=== PATIENT | male | born 1945 | race Caucasian/White ===

== ENCOUNTER 2017-03-08 23:44 | Emergency (ER) | payer OTHER ==
--- NOTE | 2017-03-08 23:54 | Emergency Department Record ---
History of Present Illness - General Chief complaint: Lower Extremity Pain Stated complaint: BLOODCLOT Time Seen by Provider: 03/08/17 23:48 Source: Patient Mode of Arrival: Wheelchair Limitations: No limitations - History of Present Illness Initial comments: 71 yo male presents to ED for evaluation of worsening pain and swelling to the LLE for the past 3-4 days. Patient reports that his knee "gave out" 3-4 days ago resulting pain behind the knee, believes he may have injured a tendon in the knee joint however is concerned about possible blood clot. Patient denies fevers, chills, or recent illness. Patient denies h/o DVT or recent immobilization. MD Complaint: Extremity swelling Onset/Timin -: Days(s) Location: Left, Lower Leg History of Same: No -: Yes Myalgia Radiation: Distal Quality: Aching Consistency: Constant Improves with: Nothing Worsens with: Walking Associated Symptoms: Denies other symptoms - Related Data Home Medications Medication Instructions Recorded Confirmed Last Taken Albuterol Sulfate [Proair 90 mcg IH QID PRN 03/08/17 03/08/17 Unknown Respiclick] Aspirin 81 mg PO DAILY 03/08/17 03/08/17 Unknown Clobetasol Propionate/Emoll 15 gm TP DAILY 03/08/17 03/08/17 Unknown [Clobetasol Emollient 0.05% Crm] Diltiazem HCl [Diltiazem ER] 360 mg PO DAILY 03/08/17 03/08/17 Unknown Ergocalciferol (Vitamin D2) 50,000 unit PO ASDIR 03/08/17 03/08/17 Unknown [Vitamin D2] Hydrochlorothiazide 25 mg PO DAILY 03/08/17 03/08/17 Unknown Losartan Potassium [Cozaar] 100 mg PO DAILY 03/08/17 03/08/17 Unknown Metformin HCl [Fortamet] 1,000 mg PO DAILY 03/08/17 03/08/17 Unknown Rosuvastatin Calcium [Crestor] 20 mg PO DAILY 03/08/17 03/08/17 Unknown Saxagliptin HCl [Onglyza] 5 mg PO DAILY 03/08/17 03/08/17 Unknown Sodium Fluoride [Prevident] 100 ml DT BID 03/08/17 03/08/17 Unknown Tiotropium [place] [Spiriva] 1 cap IH DAILY 03/08/17 03/08/17 Unknown Previous Rx's Medication Instructions Recorded Hydrocodone/Acetaminophen [[place] 1 each PO Q6H PRN #15 tablet 03/09/17 7.5-325 Tablet] Ibuprofen [Motrin] 800 mg PO Q6H #30 tab 03/09/17 Allergies Allergy/AdvReac Type Severity Reaction Status Date / Time acetaminophen [From NyQuil] Allergy RASH Verified 03/08/17 23:48 coal tar Allergy RASH Verified 03/08/17 23:48 dextromethorphan Allergy RASH Verified 03/08/17 23:48 [From NyQuil] doxylamine [From NyQuil] Allergy RASH Verified 03/08/17 23:48 lisinopril Allergy CONGESTION Verified 03/08/17 23:48 pseudoephedrine [From NyQuil] Allergy RASH Verified 03/08/17 23:48 metformin AdvReac ABDOMINAL Verified 03/09/17 00:11 PAIN Review of Systems Constitutional: Denies: Chills, Fever, Malaise, Night sweats Eyes: Denies: Eye discharge, Eye pain ENT: Denies: Congestion, Ear pain, Epistaxis Respiratory: Denies: Cough, Dyspnea Cardiovascular: Reports: Edema. Denies: Chest pain, Dyspnea on exertion Endocrine: Denies: Fatigue, Heat or cold intolerance Gastrointestinal: Denies: Abdominal pain, Nausea, Vomiting Genitourinary: Denies: Incontinence, Retention Musculoskeletal: Reports: Arthralgia, Myalgia. Denies: Back pain, Gout, Joint swelling Skin: Denies: Bruising, Change in color Neurological: Denies: Abnormal gait, Confusion, Headache, Seizure Psychiatric: Denies: Anxiety Hematological/Lymphatic: Denies: Anemia, Blood Clots Physical Exam - General General Appearance: Alert, Oriented x3, Cooperative, Moderate distress Limitations: No limitations - Head Head exam: Atraumatic, Normocephalic, Normal inspection Head exam detail: negative: Abrasion, Contusion, Stroud's sign, General tenderness, Hematoma, Laceration - Eye Eye exam: Normal appearance. negative: Conjunctival injection, Periorbital swelling, Periorbital tenderness, Scleral icterus - ENT Ear exam: negative: Auricular hematoma, Auricular trauma Nasal Exam: negative: Active bleeding, Discharge, Dried blood, Foreign body Mouth exam: negative: Drooling, Laceration, Muffled voice, Tongue elevation - Neck Neck exam: Normal inspection. negative: Meningismus - Respiratory Respiratory exam: Normal lung sounds bilaterally. negative: Rales, Respiratory distress, Rhonchi, Stridor - Cardiovascular Cardiovascular Exam: Regular rate, Normal rhythm, Normal heart sounds - GI/Abdominal GI/Abdominal exam: Soft. negative: Rebound, Rigid, Tenderness - Rectal Rectal exam: Deferred - exam: Deferred - Extremities Extremities exam: Calf tenderness, Pedal edema, Tenderness, Other (TTP to the left popliteal region and left proximal calf region, strong DPP, 3+ edema is present left) - Back Back exam: Denies: CVA tenderness (R), CVA tenderness (L) - Neurological Neurological exam: Alert, Oriented X3 - Psychiatric Psychiatric exam: Normal affect, Normal mood - Skin Skin exam: Normal color. negative: Abrasion Type of lesion: negative: abrasion Course - Reevaluation(s) Reevaluation #1: 03/09/17 01:23 D-Dimer 0.33. Patient was updated on D-Dimer result, excludes DVT as a source of the patient' s symptoms. On further examination, patient's ligaments are stable on examination, there is no warmth to palpation on examination, and no erythema to suggest a septic joint. Patient has no pain with palpation of the knee itself, pain is isolated to the popliteal region and is mild currently, patient is able to stand without difficulty. As a result, fracture is not suspected and x-rays unlikely to be of benefit. Patient reports that his pain symptoms are greatly improved following Aleve that he took at home, and he is able to ambulate and bear weight easily. Patient declined knee immobilizer or crutches. Patient appears stable for discharge with restricted activity on the LLE and follow-up with his PCP in 5-7 days for re-evaluation and likely MRI of knee as an outpatient. Will d/c home with [place] for analgesia as well. Disposition Disposition: Discharge Clinical Impression: Strain of knee and leg, left Qualifiers: Encounter type: initial encounter Qualified Code(s): S86.912A - Strain of unspecified muscle(s) and tendon(s) at lower leg level, left leg, initial encounter Disposition: Home, Self-Care Condition: (2) Stable Instructions: Knee Pain (ED) Additional Instructions: Return to ED if your symptoms worsen or if you have any concerns. Follow-up with you family doctor in 5-7 days for further evaluation of your knee pain symptoms. Caro as directed. Prescriptions: Hydrocodone/Acetaminophen [[place] 7.5-325 Tablet] 1 each PO Q6H PRN #15 tablet PRN Reason: Pain - Moderate (5-7) Ibuprofen [Motrin] 800 mg PO Q6H #30 tab Forms: Patient Portal Access Time of Disposition: :29 Quality - Quality Measures Quality Measures: N/A - Blood Pressure Screening Blood Pressure Classification: Pre-Hypertensive BP Reading Systolic Measurement: 148 Diastolic Measurement: 82 Screening for High Blood Pressure: < Pre-Hypertensive BP, F/U Documented > [ G8950] Pre-Hypertensive Follow-up Interventions: Referral to alternative/primary care provider.
[2017-03-09] MEDS ORDERED: HYDROCODONE/APAP 7.5/325MG TABLET PO ONE (01:33)
== END 2017-03-09 01:42 | disposition home or self-care (01) ==
LOC: ER 23:44
DX: S86.912A Strain of unspecified muscle(s) and tendon(s) at lower leg level, left leg, initial encounter (principal); X50.0XXA Overexertion from strenuous movement or load, initial encounter
CPT/HCPCS: 85379; 99283

== ENCOUNTER 2018-05-05 12:40 | Emergency (ER) | payer OTHER ==
[2018-05-05] MEDS ORDERED: HYDROCODONE/APAP 10/325 TABLET PO ONE (13:10)
--- NOTE | 2018-05-05 13:10 | Emergency Department Record ---
History of Present Illness - General Chief complaint: Lower Extremity Pain Stated complaint: LT HIP/GROIN PAIN Time Seen by Provider: 05/05/18 13:00 Source: Patient Mode of Arrival: Ambulatory Limitations: No limitations - History of Present Illness Initial comments: 72 yo male presents with left hip pain for about 10 days. The pain started after playing 18 holes of gold then chipping in the yard. The pain has been fairly constant. It hurts to move in certain directions and walking. At times the pain has caused him to stumble. He landed on his left knee a few days around. No swelling. No weakness. No numbness. No history of left hip surgery. No fevers, chills or new medical issues. MD Complaint: Extremity pain, Joint pain Onset/Timin -: Days(s) Location: Left History of Same: No -: Yes Arthralgia, Yes Myalgia Radiation: Proximal, Distal Severity scale (1-10): 9 Quality: Aching Consistency: Constant Improves with: Immobilization Worsens with: Walking, Weight bearing Associated Symptoms: Denies other symptoms - Related Data Home Medications Medication Instructions Recorded Confirmed Last Taken Glipizide 10 mg PO BID 05/05/18 05/05/18 Unknown Previous Rx's Medication Instructions Recorded Hydrocodone/Acetaminophen [[place] 1 each PO Q6H PRN #15 tablet 03/09/17 7.5-325 Tablet] Ibuprofen [Motrin] 800 mg PO Q6H #30 tab 03/09/17 Hydrocodone/APAP 7.5/325Mg [[place] 1 each PO Q6H #12 tab 05/05/18 7.5MG/325Mg] Allergies Allergy/AdvReac Type Severity Reaction Status Date / Time coal tar Allergy RASH Verified 05/05/18 13:06 dextromethorphan Allergy RASH Verified 05/05/18 13:06 [From NyQuil] doxylamine [From NyQuil] Allergy RASH Verified 05/05/18 13:06 lisinopril Allergy CONGESTION Verified 05/05/18 13:06 pseudoephedrine [From NyQuil] Allergy RASH Verified 05/05/18 13:06 metformin AdvReac ABDOMINAL Verified 05/05/18 13:06 PAIN Travel Screening - Travel/Exposure Within Last 30 Days Have you traveled within the last 30 days?: No Review of Systems Constitutional: Denies: Chills, Fever, Malaise ENT: Denies: Congestion, Throat pain Respiratory: Denies: Cough Cardiovascular: Denies: Chest pain, Syncope Endocrine: Denies: Fatigue Gastrointestinal: Denies: Abdominal pain, Diarrhea, Nausea, Vomiting Genitourinary: Denies: Dysuria, Frequency, Hematuria Musculoskeletal: Reports: As per HPI, Arthralgia, Myalgia Skin: Denies: Bruising, Change in color, Rash Neurological: Denies: Abnormal gait, Headache, Numbness, Tingling, Tremors, Weakness Psychiatric: Denies: Anxiety Hematological/Lymphatic: Denies: Blood Clots, Easy bleeding, Easy bruising, Swollen glands Past Medical History - SOCIAL HISTORY Smoking Status: Current every day smoker Drug Use: None - RESPIRATORY Hx COPD: Yes Comment:: emphysema - CARDIOVASCULAR Hx Hypertension: Yes Comment:: high cholesterol - NEURO Hx Neuro Disorders: No - GI Hx GI Disorders: No - Hx Genitourinary Disorders: No - ENDOCRINE Hx Endocrine Disorders: Yes Hx Diabetes: Yes (non insulin) - MUSCULOSKELETAL Hx Musculoskeletal Disorders: No - PSYCH Hx Psych Problems: Yes Comment:: PTSD - HEMATOLOGY/ONCOLOGY Hx Hematology/Oncology Disorders: No Hx Cancer: Yes (skin) Physical Exam - General General Appearance: Alert, Oriented x3, Cooperative, No acute distress Limitations: No limitations - Head Head exam: Atraumatic, Normal inspection - Eye Eye exam: Normal appearance - ENT ENT exam: Normal exam Ear exam: Normal external inspection Nasal Exam: Normal inspection Mouth exam: Normal external inspection - Neck Neck exam: Normal inspection - Respiratory Respiratory exam: Normal lung sounds bilaterally. negative: Respiratory distress - Cardiovascular Cardiovascular Exam: Regular rate, Normal rhythm, Normal heart sounds Peripheral Pulses: 2+: Dorsalis Pedis (L) - GI/Abdominal GI/Abdominal exam: Soft. negative: Guarding, Hernia, Rebound, Tenderness - Rectal Rectal exam: Deferred - exam: Deferred - Extremities Extremities exam: Normal inspection, Normal capillary refill, Tenderness. negative: Calf tenderness, Full ROM, Joint swelling, Pedal edema Image of Full Body: 1 - tender with deep palpation, no hernia or mass, pain with internal and external rotation 2 - tender, normal inspection - Back Back exam: Denies: CVA tenderness (R), CVA tenderness (L) - Neurological Neurological exam: Alert, Normal gait, Oriented X3. negative: Motor sensory deficit - Psychiatric Psychiatric exam: Normal affect, Normal mood - Skin Skin exam: Dry, Intact, Normal color, Warm Course - Reevaluation(s) Reevaluation #1: XR reviewed Hip OA noted. No fracture Knee with tri-compartment changes of degeneration 05/05/18 14:13 Disposition Disposition: Discharge Clinical Impression: Hip pain, Knee pain, acute Disposition: Home, Self-Care Condition: (1) Good Instructions: Osteoarthritis (ED) Additional Instructions: Rest avoid over use, prolonged standing, or lifting You have been referred to orthopedics and the family medicine clinic Prescriptions: Hydrocodone/APAP 7.5/325Mg [[place] 7.5MG/325Mg] 1 each PO Q6H #12 tab Referrals: DHARMESH ESQUEDA [MEDICAL DOCTOR] - DENILSON MITCHELL [DOCTOR OF OSTEOPATH] - Forms: Patient Portal Access Time of Disposition: 14:15 Quality - Quality Measures Quality Measures: N/A - Blood Pressure Screening Does Patient Have Any of the Following: Active Dx of HTN Blood Pressure Classification: Pre-Hypertensive BP Reading Systolic Measurement: 139 Diastolic Measurement: 79 Screening for High Blood Pressure: Patient Exclusion, Hx of HTN [G9744]
== END 2018-05-05 14:45 | disposition home or self-care (01) ==
LOC: ER 12:40
DX: G89.11 Acute pain due to trauma (principal); M25.552 Pain in left hip; M25.562 Pain in left knee; J44.9 Chronic obstructive pulmonary disease, unspecified; I10 Essential (primary) hypertension; E11.9 Type 2 diabetes mellitus without complications; F17.210 Nicotine dependence, cigarettes, uncomplicated
CPT/HCPCS: 99283 ×2; 73564; 73502; J3490

== ENCOUNTER 2018-05-09 11:15 | Emergency (ER) | payer OTHER ==
[2018-05-09] MEDS ORDERED: HYDROMORPHONE HCL 2 MG/ML VIAL IM ONE (11:41)
[2018-05-09] MEDS ORDERED: KETOROLAC 30 MG/ML VIAL IM ONE (11:41)
[2018-05-09] MEDS ORDERED: ONDANSETRON 4 MG ODT TABLET SL ONE (11:43)
--- NOTE | 2018-05-09 14:18 | Emergency Department Record ---
History of Present Illness - General Chief complaint: Pain Stated complaint: R HIP PAIN Time Seen by Provider: 05/09/18 11:25 Source: Patient Mode of Arrival: Ambulatory Limitations: No limitations - History of Present Illness Initial comments: pt has been having pain in his left hip area were neg except djd. he denies numness or bladder and bowel problems for 2 weeks which is gradually getting worse. now the pain is radiating down his l leg and his leg keeps going out on him. he has had a few falls fron his leg going out. he was seen in ed and referred to dr palomares. his hip and knee xrays Complaint: Joint pain, Other (back/buttock pain) Onset/Timin -: Week(s) Location: Left History of Same: Yes Severity scale (1-10): 10 Quality: Sharp Consistency: Constant Improves with: Immobilization Worsens with: Walking Associated Symptoms: Denies other symptoms - Related Data Previous Rx's Medication Instructions Recorded Ibuprofen [Motrin] 800 mg PO Q6H #30 tab 03/09/17 Hydrocodone/APAP 7.5/325Mg [[place] 1 each PO Q6H #12 tab 05/05/18 7.5MG/325Mg] Hydrocodone/Acetaminophen [[place] 1 each PO Q6HR #12 tablet 05/09/18 7.5-325 Tablet] Allergies Allergy/AdvReac Type Severity Reaction Status Date / Time coal tar Allergy RASH Verified 05/05/18 13:06 dextromethorphan Allergy RASH Verified 05/05/18 13:06 [From NyQuil] doxylamine [From NyQuil] Allergy RASH Verified 05/05/18 13:06 lisinopril Allergy CONGESTION Verified 05/05/18 13:06 pseudoephedrine [From NyQuil] Allergy RASH Verified 05/05/18 13:06 metformin AdvReac ABDOMINAL Verified 05/05/18 13:06 PAIN Travel Screening - Travel/Exposure Within Last 30 Days Have you traveled within the last 30 days?: No Review of Systems Reviewed: No additional complaints except as noted below Constitutional: Reports: As per HPI. Denies: Chills, Fever, Malaise, Night sweats, Weakness, Weight change Eyes: Reports: As per HPI. Denies: Eye discharge, Eye pain, Photophobia, Vision change ENT: Reports: As per HPI. Denies: Congestion, Dental pain, Ear pain, Epistaxis , Hearing loss, Throat pain Respiratory: Reports: As per HPI. Denies: Cough, Dyspnea, Hemoptysis, Stridor, Wheezes Cardiovascular: Reports: As per HPI. Denies: Arrhythmia, Chest pain, Dyspnea on exertion, Edema, Murmurs, Orthopnea, Palpitations, Paroxysmal nocturnal dyspnea, Rheumatic Fever, Syncope Endocrine: Reports: As per HPI. Denies: Fatigue, Heat or cold intolerance, Polydipsia, Polyuria Gastrointestinal: Reports: As per HPI. Denies: Abdominal pain, Constipation, Diarrhea, Hematemesis, Hematochezia, Melena, Nausea, Vomiting Genitourinary: Reports: As per HPI. Denies: Dysuria, Frequency, Hematuria, Incontinence, Retention, Testicular pain, Testicular mass, Urgency Musculoskeletal: Reports: As per HPI. Denies: Arthralgia, Back pain, Gout, Joint swelling, Myalgia, Neck pain Skin: Reports: As per HPI. Denies: Bruising, Change in color, Change in hair/ nails, Lesions, Pruritus, Rash Neurological: Reports: As per HPI. Denies: Abnormal gait, Confusion, Headache, Numbness, Paresthesias, Seizure, Tingling, Tremors, Vertigo, Weakness Psychiatric: Reports: As per HPI. Denies: Anxiety, Auditory hallucinations, Depression, Homicidal thoughts, Suicidal thoughts, Visual hallucinations Hematological/Lymphatic: Reports: As per HPI. Denies: Anemia, Blood Clots, Easy bleeding, Easy bruising, Swollen glands Past Medical History - SOCIAL HISTORY Smoking Status: Current every day smoker - RESPIRATORY Hx Respiratory Disorders: Yes Hx COPD: Yes Comment:: emphysema - CARDIOVASCULAR Hx Cardio Disorders: Yes Hx Hypertension: Yes Comment:: high cholesterol - NEURO Hx Neuro Disorders: No - GI Hx GI Disorders: No - Hx Genitourinary Disorders: No - ENDOCRINE Hx Endocrine Disorders: Yes Hx Diabetes: Yes (non insulin) - MUSCULOSKELETAL Hx Musculoskeletal Disorders: No - PSYCH Hx Psych Problems: Yes Comment:: PTSD - HEMATOLOGY/ONCOLOGY Hx Hematology/Oncology Disorders: No Hx Cancer: Yes (skin) Family Medical History Any Significant Family History?: No Physical Exam - General General Appearance: Alert, Oriented x3, Cooperative, Mild distress - Head Head exam: Normal inspection - Eye Eye exam: Normal appearance, PERRL, EOMI Pupils: Normal accommodation - ENT ENT exam: Normal exam, Mucous membranes moist, Normal external ear exam, Normal orophraynx Ear exam: Normal external inspection. negative: External canal tenderness Nasal Exam: Normal inspection. negative: Discharge, Sinus tenderness Mouth exam: Normal external inspection, Tongue normal Teeth exam: Normal inspection. negative: Dental caries Throat exam: Normal inspection. negative: Tonsillar erythema, Tonsillar exudate - Neck Neck exam: Normal inspection, Full ROM. negative: Tenderness - Respiratory Respiratory exam: Normal lung sounds bilaterally. negative: Respiratory distress - Cardiovascular Cardiovascular Exam: Regular rate, Normal rhythm, Normal heart sounds - GI/Abdominal GI/Abdominal exam: Soft, Normal bowel sounds. negative: Tenderness - Rectal Rectal exam: Deferred - exam: Deferred - Extremities Extremities exam: Normal inspection, Full ROM, Normal capillary refill. negative: Tenderness - Back Back exam: Reports: Full ROM, Muscle spasm, Tenderness, Vertebral tenderness. Denies: Rash noted - Neurological Neurological exam: Alert, CN II-XII intact, Normal gait, Oriented X3 - Psychiatric Psychiatric exam: Normal affect, Normal mood - Skin Skin exam: Dry, Intact, Normal color, Warm Course Vital Signs 05/09/18 05/09/18 05/09/18 11:19 11:31 13:24 Temperature 98.2 F 98.6 F Pulse Rate 78 Pulse Rate [ 77 Pulse Ox Probe] Respiratory 22 17 Rate Blood Pressure 150/86 Blood Pressure 127/73 [Left] Pulse Ox 91 L 91 L Disposition Disposition: Discharge Clinical Impression: Lumbar radiculopathy, acute Spinal stenosis Qualifiers: Spinal region: lumbosacral Qualified Code(s): M48.07 - Spinal stenosis, lumbosacral region Disposition: Home, Self-Care Condition: (1) Good Instructions: Lumbar Radiculopathy (ED) Additional Instructions: follow up with back doctor and family doctor. ice and moist heat. return sooner if worse Prescriptions: Hydrocodone/Acetaminophen [[place] 7.5-325 Tablet] 1 each PO Q6HR #12 tablet Referrals: WILLIAM COPE [DOCTOR OF OSTEOPATH] - Quality - Quality Measures Quality Measures: N/A - Blood Pressure Screening Does Patient Have Any of the Following: No Blood Pressure Classification: Pre-Hypertensive BP Reading Systolic Measurement: 150 Diastolic Measurement: 86 Screening for High Blood Pressure: < Pre-Hypertensive BP, F/U Documented > [ G8950] Pre-Hypertensive Follow-up Interventions: Follow-up with rescreen every year.
--- NOTE | 2018-05-11 14:29 | CT SCAN REPORT ---
EXAM: CT SCAN OF THE LUMBAR SPINE WITHOUT CONTRAST HISTORY: PAIN RADIATING TO THE LEFT GROIN AND INTO THE LEFT THIGH. TECHNIQUE: Standard CT imaging of the lumbar spine was performed in the axial plane without contrast. Additional coronal and sagittal reformatted images were also performed. Comparison: None. FINDINGS: There are five lumbar vertebral segments. End plate degenerative changes and facet arthropathy are present throughout. The vertebral body heights are maintained. There is no spondylolysis, spondylolisthesis, or acute compression fracture. There is a 3.8 x 2.7 cm cyst within the upper pole of the right kidney. Scattered diverticula are present within the sigmoid colon. There is no evidence for acute diverticulitis. The remaining visualized paraspinal soft tissues are normal. At the T12-L1 level: Unremarkable. At the L1-L2 level: Unremarkable. At the L2-L3 level: There is diffuse disk bulging with associated posterior spurring. Moderate bilateral facet arthropathy is also present. These findings combined result in moderate central canal stenosis with the AP dimension of the thecal sac measuring 7 mm. There is moderate bilateral neural foraminal narrowing with no visible nerve root impingement. At the L3-L4 level: There is diffuse disk bulging with associated posterior spurring. Severe bilateral facet arthropathy is present with thickening of the ligamentum flavum. These findings result in severe central canal stenosis with the AP dimension of the thecal sac measuring 5 mm. There is severe left neural foraminal narrowing with possible impingement on the exiting L3 nerve root. There is moderate right neural foraminal narrowing with no visible nerve root impingement. At the L4-L5 level: There is mild diffuse disk bulging. A superimposed small central disk protrusion is present. There is moderate to severe bilateral neural foraminal narrowing with thickening of the ligamentum flavum. This results in moderate central canal stenosis with the AP dimension of the thecal sac measuring 7 mm. There is moderate bilateral neural foraminal narrowing with no visible impingement on the exiting L4 nerve roots. At the L5-S1 level: There is minor diffuse disk bulging with associated posterior spurring. Moderate to severe bilateral facet arthropathy is present. There is no gross central canal stenosis. There is moderate bilateral neural foraminal narrowing with no nerve root impingement. IMPRESSION: 1. EXTENSIVE MULTILEVEL DEGENERATIVE DISK DISEASE AND FACET ARTHROPATHY RESULTING IN SEVERE CENTRAL CANAL STENOSIS AT THE L3-L4 LEVEL AND MODERATE CENTRAL CANAL STENOSIS AT THE L2-L3 AND L4-L5 LEVELS. 2. SEVERE LEFT NEURAL FORAMINAL NARROWING AT THE L3-L4 LEVEL WITH POSSIBLE IMPINGEMENT ON THE EXITING LEFT L3 NERVE ROOT. 3. ADDITIONAL NONEMERGENT FINDINGS ABOVE. JOB NUMBER: [id number] MTDD
--- NOTE | 2018-05-11 14:36 | CT SCAN REPORT ---
EXAM: CT SCAN OF THE LEFT HIP WITHOUT CONTRAST AND WITH THREE DIMENSIONAL REFORMATTED IMAGES HISTORY: LEFT HIP AND GROIN PAIN RADIATING INTO THE THIGH. SYMPTOMS FOR THE PAST TWO WEEKS. TECHNIQUE: Standard CT imaging of the left hip was performed in the axial plane without contrast. Additional coronal and sagittal reformatted images were performed. Multiplanar three dimensional volume rendered reformatted images were performed on an independent workstation under concurrent supervision. Comparison: Left hip x-rays dated 05/05/18. FINDINGS: There is mild narrowing of the left hip joint space. Moderate sized marginal osteophytes are present. There is no acute fracture, dislocation, or destructive process. There is no appreciable hip effusion. The visualized portions of the bony pelvis appear intact. There are minor arthritic changes of the sacroiliac joint. The surrounding hip musculature appears normal. IMPRESSION: 1. MILD TO MODERATE ARTHRITIC CHANGES OF THE LEFT HIP. 2. NO ACUTE PATHOLOGY IDENTIFIED. JOB NUMBER: [id number] MTDD
== END 2018-05-09 14:52 | disposition home or self-care (01) ==
LOC: ER 11:15
DX: M54.16 Radiculopathy, lumbar region (principal); M48.07 Spinal stenosis, lumbosacral region; J44.9 Chronic obstructive pulmonary disease, unspecified; E11.9 Type 2 diabetes mellitus without complications; I10 Essential (primary) hypertension; F17.210 Nicotine dependence, cigarettes, uncomplicated
CPT/HCPCS: 99283; 96372; 99284; 73700; 72131; J1885; J1170